=== PATIENT | female | born 1980 | race African-American/Black ===

== ENCOUNTER 2017-05-11 18:47 | Inpatient (IN) | payer OTHER ==
[~2017-05-11] VITALS: Ht 162.6 cm; Wt 125.6 kg
--- NOTE | ~2017-05-11 | EKG ---
[place] [address] 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
--- NOTE | ~2017-05-11 | HC ---
[facility] [place] [address] CONSULTATION Name: MILENA FLOR Room #: 408-P [facility] IN M.R.#: [id number] Admission: 05/11/17 Attend Phys: Thai Trejo DO Discharge: Date of : 84 Report #: [id number] THIS REPORT FOR: //name// CC: Thai Nichols DATE OF SERVICE: 05/11/2017 REFERRING PROVIDER: Thai Trejo DO REASON FOR CONSULT: Shortness of breath with chest pain. HISTORY OF PRESENT ILLNESS: The patient is a 37-year-old obese -[place] female who had been on control pills and underwent a laparoscopic sleeve gastrectomy 6 days ago. The patient was recovering quite well until she was walking the dog earlier this evening and developed sudden onset chest pain with shortness of breath. She therefore presented for workup where a chest x-ray has shown left lower lobe consolidation concerning for pneumonia. A CT angiogram of the chest has not yet been obtained as the emergency room was having difficulty with obtaining adequate IV access; however, they are working to remedy this. The patient was given 120 mg of Lovenox while awaiting that study for empiric treatment of a pulmonary embolism. The patient is resting comfortably and has no complaints at this time. PAST MEDICAL HISTORY: Hypertension, back pain, chronic fatigue, and morbid obesity with a BMI of greater than 50%. HOME MEDICATIONS: Losartan, control pills, and Lortab. ALLERGIES: No known drug allergies. SOCIAL HISTORY: The patient does not utilize tobacco, alcohol, or illicit drugs. FAMILY HISTORY: Reviewed and noncontributory. REVIEW OF SYSTEMS: GENERAL: The patient denies nocturnal fevers or chills. HEENT: No change in vision or change in hearing. NECK: No swelling or difficulty swallowing. HEART: No prior chest pain or palpitations. LUNGS: No prior coughing or shortness of breath. ABDOMEN: No nausea. No vomiting. GENITOURINARY: No dysuria or hematuria. ENDOCRINE: No polyuria or polydipsia. HEMATOLOGIC: No history of bleeding or easy bruising. [facility] [address] [place] [address] CONSULTATION Name: MILENA FLOR Room #: 408-P [facility] IN M.R.#: [id number] Admission: 05/11/17 Attend Phys: Thai Trejo DO Discharge: Date of : 84 Report #: [id number] EXTREMITIES: No history of weakness or limited range of motion. NEUROLOGIC: No history of syncope or near syncopal episodes. SKIN AND INTEGUMENT: No history of abnormal lesions or moles. PSYCHIATRIC: No history of anxiety or depression. PHYSICAL EXAMINATION: VITAL SIGNS: Temperature 97.8, pulse 96, respirations 22, blood pressure 132/80, she stands 5 feet 4 inches tall and weighs 291 pounds. GENERAL: Alert and oriented, in no acute distress. HEENT: Normocephalic, atraumatic. Pupils are equal, round, and reactive to light. NECK: Supple without lymphadenopathy. Trachea midline. HEART: Regular rate and rhythm. LUNGS: Clear to auscultation bilaterally with some diminished air entry at the base of the left lung castellanos. ABDOMEN: Obese, soft, nontender, and nondistended. GENITOURINARY: Normal external female genitalia. EXTREMITIES: No clubbing, cyanosis, or edema. NEUROLOGIC: Cranial nerves 2-12 are grossly intact. PSYCHIATRIC: Normal mood and affect. SKIN AND INTEGUMENT: No abnormal lesions or moles. LABORATORY AND X-RAY DATA: CBC shows white blood cell count of 7.6 thousand, hemoglobin 12.3, and platelets 190,000. Creatinine 0.8. Liver function enzymes are normal. Albumin is low at 2.8. Lactic acid is pending currently. Troponin negative. BNP is normal at 27. Chest x-ray shows left lower lobe consolidation consistent with pneumonia. ASSESSMENT AND PLAN: A 37-year-old obese -[place]vad[place] female who has what appears to be pneumonia as the likely cause of her chest pain and shortness of breath; however, we cannot rule out pulmonary embolism until receiving a CT angiogram of the chest, which has been ordered stat, but is pending due to no IV access. If they are unable to gain adequate IV access, I would request that we proceed emergently with a VQ scan. I sincerely appreciate this consult. I will follow closely and leave any further recommendations in the patient's chart as appropriate. However, she can have a post-bariatric diet as tolerated with Lortab elixir for pain. <ELECTRONICALLY SIGNED> By: Monique Peter MD, FACS 05/14/17 1029 1747 [id number] Monique Peter MD, FACS /nt
--- NOTE | ~2017-05-11 | HC ---
[facility] [place] [address] CONSULTATION Name: MILENA FLOR Room #: 408-P ADM IN M.R.#: [id number] Admission: 05/11/17 Attend Phys: Thai Trejo DO Discharge: Date of : 84 Report #: [id number] THIS REPORT FOR: //name// CC: Thai Nichols DATE OF SERVICE: 05/12/2017 PULMONARY CONSULTATION TROY Stein PROVIDER: Dr. Monique Peter REASON FOR CONSULTATION: Shortness of breath and chest pain. HISTORY OF PRESENT ILLNESS: Our group was asked to evaluate the patient in consultation while hospitalized at [facility]. A pleasant 37-year-old woman with past pulmonary history for remote asthma, which has not given her any trouble for quite some time. One week ago underwent gastric sleeve resection, stated she was healing well, was ambulating well. Had been walking her dog yesterday, when she developed some fatigue, chest pressure and shortness of breath, was concerned she might have overdone it. And also had been having some right lower extremity pain, more proximally in the right lower extremity. Rested thinking this would help. Called the on-call surgical team who were concerned about pulmonary embolism. She was advised to go to the Emergency Department. Presented to our Emergency Department yesterday evening. Chest radiograph: Questionable left basilar infiltrate or atelectasis, but otherwise clear. No nausea or vomiting. No other chest pain complaints. No hemoptysis. No sputum production. No fevers, chills or sweats. No leukocytosis noted in the Emergency Department. D-dimer is elevated as expected. The patient could not get adequate IV access. She was given a dose of Lovenox for presumed pulmonary embolism and admitted to the floor with a right foot IV. The patient subsequently had a right antecubital IV placed this morning and is feeling somewhat better, no distress, awaiting further workup at this time. Currently resting comfortably. ALLERGIES: None known. PAST MEDICAL HISTORY: 1. History of morbid obesity, status post gastric sleeve resection 1 week ago. 2. Hypertension. OUTPATIENT MEDICATIONS: Include losartan, hydrocodone and apparently may have been on control medications. SOCIAL HISTORY: Nonsmoker. No significant alcohol consumption. Currently [facility] [address] [place] [address] CONSULTATION Name: MILENA FLOR Room #: 408-P [facility] IN M.R.#: [id number] Admission: 05/11/17 Attend Phys: Thai Trejo DO Discharge: Date of : 84 Report #: [id number] works for [employer]. No significant exposures. No recent travels. FAMILY HISTORY: Negative for any history of pulmonary disease or pulmonary emboli. REVIEW OF SYSTEMS: CONSTITUTIONAL: No fevers, chills or sweats. ENT: No upper respiratory congestion, rhinorrhea, dysphagia or sleep apnea symptoms. CARDIOVASCULAR: As described in the HPI, chest pain. GASTROINTESTINAL: No nausea or vomiting. Minimal abdominal tenderness around one of her incision sites for her laparoscopic surgery. GENITOURINARY: No dysuria. No frequency or hematuria. Denies being on period at this time from gynecological standpoint. INTEGUMENT: Denies any rash. MUSCULOSKELETAL: No new joint pains or swelling. Prior history of right knee surgery. PHYSICAL EXAMINATION: VITAL SIGNS: Afebrile, pulse 90, respiratory rate 20, blood pressure 145/92 and oxygen saturation 99% on 2 liters. GENERAL: This is a pleasant, obese and middle-aged woman, in no distress. HEENT: Clear oropharynx. No thrush. Mallampati 2 airway. NECK: Supple. No lymphadenopathy. LUNGS: Clear. No wheezes or crackles. CARDIOVASCULAR: Heart regular. No murmurs noted. ABDOMEN: Obese, soft and nontender. A well-healed small laparoscopy scars noted. EXTREMITIES: Without any edema or tenderness. INTEGUMENT: No rash identified. LABORATORIES: White blood cell count 9000, hemoglobin 12, hematocrit 37 and platelet count 289. Sodium 138, potassium 4.0, chloride 103 and bicarbonate 17. BUN 8 and creatinine 0.8. Glucose 85. Troponin was less than 0.04. D-dimer 32. Lactate normal. Magnesium mildly low 1.7. Liver enzymes normal. White blood cell count 7000, hemoglobin 12, hematocrit 39 and platelet count 190. IMPRESSION: 1. Acute onset chest pain and shortness of breath, worrisome for pulmonary embolism. Given the high risk patient for pulmonary embolism, I believe this would be the high pre-test probability given recent surgery. No other explanations. Chest radiograph findings were nonspecific, maybe related to pulmonary embolism or possibly atelectasis or early pneumonia. No other signs or symptoms of pneumonia without fever or productive cough. 2. Status post laparoscopic gastric sleeve resection. [facility] [address] [place] [address] CONSULTATION Name: MILENA FLOR Room #: 408-P [facility] IN M.R.#: [id number] Admission: 05/11/17 Attend Phys: Thai Tayla Maya, Discharge: Date of : 84 Report #: [id number] 3. Morbid obesity. 4. Hypertension. 5. History of mild asthma, which has not required any treatment for several years. SUGGESTIONS: 1. Echocardiogram. 2. Lower extremity venous Doppler. 3. Await CT scan of the chest for PE. 4. Continue antibiotics for now. 5. Continue anticoagulation, but would stop immediately if no findings for PE given recent surgery. 6. We will follow along with you. Thank you for requesting our suggestions. By: [id number] Michael Bailey MD /anni
--- NOTE | ~2017-05-11 | 2DMMODE ---
[facility] [address] [place] [address] 2 D/M-MODE ECHOCARDIOGRAM Name: MILENA FLOR S Room #: 408-P ADM IN .R.#: [id number] Admission: 05/11/17 Attend Phys: Thai Trejo, Discharge: Date of : 84 Date of Service: 05/12/17 1343 Report #: [id number] THIS REPORT FOR: //name// APPROVED REPORT Study performed: 05/12/2017 12:30:36 EXAM: Comprehensive 2D, Doppler, and color-flow Echocardiogram Patient Location: Echo lab Room #: 408 Status: routine BSA: 2.25 HR: 86 bpm BP: 145/92 mmHg Rhythm: NSR Other Information Study Quality: Good Indications Chest pain, dyspnea. S/P operation last week. Hx: HTN, morbid obesity 2D Dimensions RVDd: 36.82 mm LVEF(%): 63.90 (>50%) IVSd: 9.99 (7-11mm) LVOT Diam: 19.58 (18-24mm) LVDd: 43.39 mm PWd: 9.43 (7-11mm) Ascending Ao: 29.34 (22-36mm) LVDs: 28.41 (25-40mm) Aortic Root: 29.56 mm Maradiaga's LVEF: 63.90 % Volumes Left Atrial Volume (Systole) Single Plane 4CH: 35.22 mL Single Plane 2CH: 36.86 mL LA ESV Index: 18.00 mL/m2 Aortic Valve AoV Peak Jenaro.: 1.87 m/s AO Peak Gr.: 13.98 mmHg LVOT Max P.56 mmHg LVOT Max V: 1.28 m/s REJI Vmax: 2.06 cm2 Mitral Valve E/A Ratio: 1.4 [facility] [place] [address] 2 D/M-MODE ECHOCARDIOGRAM Name: MILENA FLOR Room #: 408-[facility] IN .R.#: [id number] Admission: 05/11/17 Attend Phys: Thai Trejo, Discharge: Date of : 84 Date of Service: 05/12/17 1343 Report #: [id number] MV Decel. Time: 193.47 ms MV E Max Jenaro.: 1.04 m/s MV A Jenaro.: 0.76 m/s MV PHT: 56.11 ms IVRT: 69.20 ms Pulmonary Valve PV Peak Jenaro.: 1.15 m/s PV Peak Gr.: 5.30 mmHg Pulmonary Vein P Vein S: 0.72 m/s P Vein A: 0.33 m/s P Vein D: 0.39 m/s P Vein A Dur.: 79.6 msec P Vein S/D Ratio: 1.85 Tricuspid Valve TR Peak Jenaro.: 3.38 m/s RAP Estimate: 5.00 mmHg TR Peak Gr.: 45.66 mmHg PA Pressure: 51.00 mmHg Left Ventricle The left ventricle is normal size. There is normal LV segmental wall motion. There is normal left ventricular wall thickness. Left ventricular systolic function is normal. LVEF is 60-65%. The left ventricular diastolic function is normal. Right Ventricle The right ventricle is normal size. The right ventricular systolic function is normal. Atria The left atrium size is normal. The right atrium size is normal. Aortic Valve The aortic valve is normal in structure. No aortic regurgitation is present. There is no aortic valvular stenosis. Mitral Valve The mitral valve is normal in structure. There is no mitral valve regurgitation noted. No evidence of mitral valve stenosis. Tricuspid Valve The tricuspid valve is normal in structure. Mild to moderate tricuspid regurgitation. Estimated PAP 51mmHg. Pulmonic Valve [address] [address] 2 D/M-MODE ECHOCARDIOGRAM Name: MILENA FLOR Room #: 408-P [facility] IN [facility]#: [id number] Admission: 05/11/17 Attend Phys: Thai Trejo, Discharge: Date of : 84 Date of Service: 05/12/17 1343 Report #: [id number] The pulmonary valve is normal in structure. Mild pulmonic regurgitation. Great Vessels The aortic root is normal in size. The ascending aorta is normal in size. IVC is normal in size and collapses >50% with inspiration. Pericardium There is no pericardial effusion. <Conclusion> The left ventricle is normal size. LVEF is 60-65%. The aortic valve is normal in structure. The mitral valve is normal in structure. The tricuspid valve is normal in structure. The pulmonary valve is normal in structure. There is no pericardial effusion. <ELECTRONICALLY SIGNED> By: Monty Higginbotham MD 05/12/17 1343 1343 134 Monty Higginbotham MD /INF
[~2017-05-11 18:47] MED LIST: HYDROCODONE-ACE15 ML PO; LOSARTAN POTAS100 MG PO; MULTIVITAMINS PO; PROAIR HFA8.5 GM INH; TRINESSA1 EACH PO
[2017-05-11 20:53] LABS: ABSOLUTE NEUTROPHILS 5.7 thou/uL (1.4-8.2); BASOPHILS 0.5 % (0.0-2.0); EOSINOPHILS 0.6 % (0.0-3.0); HEMATOCRIT 39.2 % (37.0-47.0); HEMOGLOBIN 12.3 gm/dL (12.0-15.0); LYMPHOCYTES 17.7 % (24.0-44.0); MCH 27.2 pg (26.0-34.0); MCHC 31.4 g/dL (28.0-37.0); MCV 86.6 fL (80.0-100.0); MONOCYTES 6.1 % (1.0-8.0); PLATELET COUNT 190 thou/uL (150-400); POLYS 75.1 % (36.0-66.0); RBC 4.53 mil/uL (4.20-5.00); RDW 14.1 % (10.5-14.5); WBC 7.6 thou/uL (4.0-11.0)
[2017-05-11 20:58] LABS: MANUAL DIFF NO
[2017-05-11 23:50] VITALS: BP 135/91
[2017-05-11 23:56] LABS: ALBUMIN 2.8 g/dL (3.4-5.0); ALKALINE PHOSPHATASE 128 U/L (46-116); ANION GAP 17 mmol/L (7-16); BUN 9 mg/dL (7-18); CHLORIDE 103 mmol/L (98-107); CO2 19 mmol/L (21-32); CREATININE 0.8 mg/dL (0.6-1.0); GLUCOSE 82 mg/dL (74-106); MAGNESIUM 1.7 mg/dL (1.8-2.4); POTASSIUM 4.1 mmol/L (3.5-5.1); SGOT 10 U/L (15-37); SGPT 19 U/L (30-65); SODIUM 139 mmol/L (136-145); TOTAL BILIRUBIN 0.7 mg/dL (<0.1-1.0); TOTAL PROTEIN 7.5 g/dL (6.4-8.2); TROPONIN-I < 0.04 ng/mL (<0.06)
[2017-05-11 23:58] LABS: PROTIME 10.5 Seconds (9.3-11.4)
[2017-05-12 00:20] VITALS: BP 154/86
[2017-05-12 04:00] VITALS: BP 135/91
[2017-05-12 06:34] LABS: HEMATOCRIT 37.4 % (37.0-47.0); MCHC 31.9 g/dL (28.0-37.0); MCV 84.5 fL (80.0-100.0); RBC 4.43 mil/uL (4.20-5.00); RDW 13.9 % (10.5-14.5); WBC 9.1 thou/uL (4.0-11.0)
[2017-05-12 06:43] LABS: CREATININE 0.8 mg/dL (0.6-1.0)
[2017-05-12 08:00] VITALS: BP 145/92
[2017-05-12 16:00] VITALS: BP 150/98
[2017-05-12 19:31] VITALS: BP 133/73
[2017-05-13 03:15] VITALS: BP 141/81
[2017-05-13 06:07] LABS: ABSOLUTE NEUTROPHILS 5.2 thou/uL (1.4-8.2); BASOPHILS 0.8 % (0.0-2.0); HEMOGLOBIN 11.8 gm/dL (12.0-15.0); LYMPHOCYTES 16.5 % (24.0-44.0); MCH 27.7 pg (26.0-34.0); MCHC 32.7 g/dL (28.0-37.0); MCV 84.8 fL (80.0-100.0); MONOCYTES 10.9 % (1.0-8.0); PLATELET COUNT 294 thou/uL (150-400); POLYS 70.8 % (36.0-66.0); RBC 4.25 mil/uL (4.20-5.00); RDW 13.7 % (10.5-14.5); WBC 7.3 thou/uL (4.0-11.0)
[2017-05-13 06:18] LABS: CALCIUM 8.9 mg/dL (8.5-10.1); CREATININE 0.8 mg/dL (0.6-1.0); POTASSIUM 4.1 mmol/L (3.5-5.1)
[2017-05-13 06:20] LABS: MANUAL DIFF NO
[2017-05-13 07:35] VITALS: BP 146/89
[2017-05-13 15:35] VITALS: BP 144/87
[2017-05-13 19:38] VITALS: BP 152/103
[2017-05-13 23:36] VITALS: BP 152/100
[2017-05-14 03:34] VITALS: BP 147/90
[2017-05-14 08:00] VITALS: BP 146/94
[2017-05-14 16:50] VITALS: BP 153/99
[2017-05-14 17:11] LABS: IIb/IIIa ANTIBODY Positive (Negative); Ia/IIa ANTIBODY Positive (Negative)
[2017-05-14 20:15] VITALS: BP 146/93
[2017-05-15 04:36] VITALS: BP 129/67
[2017-05-15 06:08] LABS: ABSOLUTE NEUTROPHILS 4.7 thou/uL (1.4-8.2); BASOPHILS 0.7 % (0.0-2.0); EOSINOPHILS 2.8 % (0.0-3.0); HEMATOCRIT 35.8 % (37.0-47.0); HEMOGLOBIN 11.7 gm/dL (12.0-15.0); LYMPHOCYTES 19.9 % (24.0-44.0); MCH 27.3 pg (26.0-34.0); MCHC 32.7 g/dL (28.0-37.0); MCV 83.5 fL (80.0-100.0); PLATELET COUNT 332 thou/uL (150-400); POLYS 67.6 % (36.0-66.0); RBC 4.29 mil/uL (4.20-5.00); RDW 13.9 % (10.5-14.5)
[2017-05-15 06:17] LABS: MANUAL DIFF NO
[2017-05-15 06:18] LABS: CALCIUM 9.1 mg/dL (8.5-10.1); CREATININE 0.8 mg/dL (0.6-1.0); POTASSIUM 4.1 mmol/L (3.5-5.1)
[2017-05-15 07:36] VITALS: BP 142/96
[2017-05-15 16:15] VITALS: BP 136/68
[2017-05-15 20:13] VITALS: BP 153/97
[2017-05-16 04:30] VITALS: BP 132/87
[2017-05-16 07:08] LABS: CALCIUM 9.4 mg/dL (8.5-10.1); CREATININE 0.8 mg/dL (0.6-1.0); POTASSIUM 3.7 mmol/L (3.5-5.1)
[2017-05-16 07:30] VITALS: BP 133/93
[2017-05-16] MEDS ORDERED: PRADAXA150 MG PO (08:36)
[2017-05-16] MEDS ORDERED: AUGMENTIN400 MG/53 PO (08:36)
[2017-05-16 10:12] VITALS: BP 133/93
[2017-05-16 14:49] VITALS: BP 133/93
== END 2017-05-16 16:04 | disposition home health service (06) | DRG 175 ==
LOC: ER 18:47 → 4N 22:57 → EROBS 22:57 → 4N 05-12 00:18 → ENTRNSPT 05-16 15:33 → EDTRNSPTSTS 05-16 15:35 → 4N 05-16 16:04
PROVIDERS: Emergency Medicine; Family Medicine; Internal Medicine Endocrinology, Diabetes & Metabolism; Nurse Practitioner Family; Surgery
PROC: 05HD33Z Insertion of Infusion Device into Right Cephalic Vein, Percutaneous Approach (ICD-10-PCS; principal; 2017-05-12)
PROC: B54MZZA Ultrasonography of Right Upper Extremity Veins, Guidance (ICD-10-PCS; principal; 2017-05-12)
DX: I26.99 Other pulmonary embolism without acute cor pulmonale (principal); J18.9 Pneumonia, unspecified organism; I10 Essential (primary) hypertension; J45.909 Unspecified asthma, uncomplicated; Z98.84 Bariatric surgery status; Z79.3 Long term (current) use of hormonal contraceptives; Z79.899 Other long term (current) drug therapy; Z82.49 Family history of ischemic heart disease and other diseases of the circulatory system
CPT/HCPCS: 10790; 27001